=== PATIENT | male | born 1940 | race Caucasian/White ===

== ENCOUNTER 2018-05-10 08:42 | Inpatient (IN) ==
[2018-05-10] MEDS ORDERED: MethylPREDNISolone Sod Succinate Inj 125 MG/2 ML Vial IV.PUSH ONE (09:04)
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
[2018-05-10 09:17] LABS: Baso # (Auto) 0.1 th/mm3 (0.0-0.2); Baso % (Auto) 0.9 % (0.0-2.0); Eos # (Auto) 0.3 th/mm3 (0.0-0.4); Eos % (Auto) 3.2 % (0.0-4.0); Hematocrit 45.4 % (39.0-51.0); Hemoglobin 14.9 gm/dL (13.0-17.0); Lymph # (Auto) 2.1 th/mm3 (1.0-4.8); Mean Corpuscular HGB Conc 32.7 % (32.0-36.0); Mean Corpuscular Hemoglobin 29.4 pg (27.0-34.0); Mean Corpuscular Volume 89.8 fL (80.0-100.0); Mean Platelet Volume 8.5 fL (7.0-11.0); Mono # (Auto) 0.6 th/mm3 (0.0-0.9); Mono % (Auto) 6.7 % (0.0-8.0); Neut # (Auto) 5.5 th/mm3 (1.8-7.7); Neut % (Auto) 65.2 % (16.0-70.0); Platelet Count 231 th/mm3 (150-450); Red Blood Count 5.06 mil/mm3 (4.50-5.90); Red Cell Distribution Width 13.2 % (11.6-17.2); White Blood Count 8.6 th/mm3 (4.0-11.0)
[2018-05-10] MEDS ORDERED: Succinylcholine Inj 200 MG/10 ML Vial IV.PUSH ONE (09:19)
[2018-05-10] MEDS ORDERED: Etomidate Inj 40 MG/20 ML Vial IV.PUSH ONE (09:19)
[2018-05-10] MEDS ORDERED: Sod Chloride 0.9% Inj 1,000 ML IV.CONT SCH (09:30)
[2018-05-10] MEDS: Propofol 1000 mg/100 ml Inj 1,000 MG/100 ML BOTTLE IV.CONT PRN ×4 (09:35→23:28)
[2018-05-10 09:49] LABS: Calcium 8.8 mg/dL (8.5-10.1)
[2018-05-10 09:50] LABS: Albumin 3.9 g/dL (3.4-5.0); Carbon Dioxide 27.6 meq/L (21.0-32.0); Glucose,Random 117 mg/dL (74-106)
--- NOTE | 2018-05-10 09:52 | XR ---
EXAM DATE: 05/10/2018 9:49 AM EDT AGE/SEX: 77 years / Male INDICATIONS: Short of breath. Post intubation CLINICAL DATA: This is the patient's initial encounter. Patient reports that signs and symptoms have been present for 1 day and indicates a pain score of Nonresponsive. MEDICAL/SURGICAL HISTORY: Non-responsive. Abdominal aortic aneurysm repair. COMPARISON: No prior exams available for comparison. FINDINGS: ETT at the level of the clavicles. Patchy bilateral lower lung zone airspace disease. Cardiac silhoue tte is in the upper limits of normal in size. Bony thorax is intact. CONCLUSION: 1. ETT in good position. 2. Patchy bilateral lower lung zone airspace disease, presumably atelectasis. Electronically signed by: Maximilian Garcia MD 05/10/2018 9:51 AM EDT
[2018-05-10 09:53] LABS: Glomerular Filtration Rate 65 mL/min (>89)
[2018-05-10 09:55] LABS: Total Protein 8.3 g/dL (6.4-8.2)
[2018-05-10 09:56] LABS: Alkaline Phosphatase 66 U/L (45-117); Anion Gap 8 meq/L (5-15); Chloride 103 meq/L (98-107); Potassium 4.1 meq/L (3.5-5.1); Sodium 139 meq/L (136-145)
[2018-05-10 09:57] LABS: Alanine Aminotransferase 30 U/L (12-78)
[2018-05-10 10:01] LABS: Blood Urea Nitrogen 14 mg/dL (7-18)
[2018-05-10 10:02] LABS: Aspartate Aminotransferase 30 U/L (15-37)
[2018-05-10 10:18] LABS: ABG Base Excess -1.6 mmol/L (-2-2); ABG PCO2 46 mmHg (38-42); ABG PO2 485 mmHg (61-120)
[2018-05-10] MEDS ORDERED: Sodium Phosphate Inj 30 MMOL in Sodium Chlor 0.9% Inj 250 ML IV.SIG PRN (10:38)
[2018-05-10] MEDS ORDERED: Magnesium Oxide 400 MG Tablet PO PRN (10:38)
[2018-05-10] MEDS ORDERED: Magnesium Sulfate Inj 2 GM in Sodium Chlor 0.9% Inj 96 ML IV.SIG PRN (10:38)
[2018-05-10] MEDS ORDERED: Potassium Phosphate Inj 30 MMOL in Sodium Chlor 0.9% Inj 250 ML IV.SIG PRN (10:38)
[2018-05-10] MEDS ORDERED: Potassium Chloride 25 MEQ Effervescent Tablet PO PRN (10:38)
[2018-05-10] MEDS ORDERED: Bisacodyl 10 MG Supp RECTAL PRN (10:38)
[2018-05-10] MEDS ORDERED: Potassium Phosphate 500 MG Soluble Tablet PO PRN ×2 (10:38)
[2018-05-10] MEDS ORDERED: Magnesium Sulfate Inj 4 GM in Sodium Chlor 0.9% Inj 92 ML IV.SIG PRN (10:38)
[2018-05-10] MEDS ORDERED: Potassium Chlor 20 mEq Premix 20 MEQ/100 ML PIGGYBACK IV.SIG PRN ×2 (10:38)
[2018-05-10] MEDS ORDERED: Potassium Chlor 40 mEq Premix 40 MEQ/100 ML PIGGYBACK IV.SIG PRN ×2 (10:38)
[2018-05-10] MEDS: Enoxaparin Inj 40 MG/0.4 ML Syringe SQ SCH (11:58)
[2018-05-10] MEDS: Oral Hygiene Kit OROPHARYNG SCH ×2 (11:58→16:56)
[2018-05-10] MEDS: fentaNYL 10 mcg/mL Premix Drip 2,500 MCG/250 ML BAG IV.SIG PRN (12:00)
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
[2018-05-10] MEDS: Chlorhexidine 0.12% Oral Kit 15 ML UDC OROPHARYNG SCH (20:48)
[2018-05-10] MEDS: Senna/Docusate Sodium 8.6/50 MG Tablet PO SCH (20:49)
[2018-05-10] MEDS ORDERED: Famotidine 20 MG Tablet PO SCH (21:00)
[2018-05-11] MEDS: Oral Hygiene Kit OROPHARYNG SCH ×4 (02:40→16:00)
[2018-05-11] MEDS ORDERED: Lidocaine 2% Jelly 5 ML Syringe TOPICAL ONE (03:04)
[2018-05-11] MEDS ORDERED: Chlorhexidine Gluconate 2% 1 Pack (2 Cloths) TOPICAL PRN (04:00)
[2018-05-11 05:17] LABS: ABG PCO2 44 mmHg (38-42); ABG PO2 103 mmHG (61-120)
[2018-05-11] MEDS: Chlorhexidine Gluconate 2% 1 Pack (2 Cloths) TOPICAL SCH (05:47)
[2018-05-11] MEDS: Chlorhexidine 0.12% Oral Kit 15 ML UDC OROPHARYNG SCH ×2 (08:17→22:14)
[2018-05-11] MEDS: Propofol 1000 mg/100 ml Inj 1,000 MG/100 ML BOTTLE IV.CONT PRN ×2 (09:45→22:15)
--- NOTE | 2018-05-11 10:35 | P.PNCC ---
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 He inhaled the mixture accidentally and immediately had a burning sensation in his throat. He arrived in the ED approximately 30 minutes after inhaling the mixture. In the ER, he had stridor and was emergently intubated for respiratory distress. when I evaluated the patient, he was intubated and sedated. ROS and additional history is unobtainable. SUBJ 05/11/18: Patient transferred to [facility] overnight for bronchoscopy to evaluate for inhalation injury. Clinical exam reveals bilateral inspiratory and expiratory wheezing. Continue scheduled and as needed DuoNeb and Decadron for now. Chest x-ray today is pending Objective Vital Signs / I&O: Vital Signs 05/10/18 10:45 05/10/18 11:00 05/10/18 11:33 Temperature Pulse Rate 92 H 90 84 Respiratory Rate 16 16 22 Blood Pressure 140/70 142/74 H 128/77 Pulse Oximetry 99 99 96 05/10/18 11:38 05/10/18 11:47 05/10/18 11:49 Temperature 98.7 F Pulse Rate 78 70 Respiratory Rate 16 16 Blood Pressure 99/57 L 106/58 L Pulse Oximetry 94 L 94 L 05/10/18 12:00 05/10/18 12:04 05/10/18 12:19 Temperature 98.2 F 98.2 F Pulse Rate 68 66 Respiratory Rate 16 16 Blood Pressure 102/57 L 103/56 L Pulse Oximetry 95 95 05/10/18 12:34 05/10/18 12:49 05/10/18 13:04 Temperature Pulse Rate 66 62 62 Respiratory Rate 16 16 Blood Pressure 101/57 L 106/57 L 108/60 Pulse Oximetry 95 96 96 05/10/18 13:19 05/10/18 13:34 05/10/18 13:38 Temperature Pulse Rate 62 62 Respiratory Rate 15 16 16 Blood Pressure 108/60 113/62 Pulse Oximetry 96 96 96 05/10/18 13:49 05/10/18 13:58 05/10/18 14:06 Temperature 98.8 F Pulse Rate 64 64 Respiratory Rate 15 16 Blood Pressure 119/64 123/63 Pulse Oximetry 96 96 05/10/18 14:19 05/10/18 14:34 05/10/18 14:49 Temperature Pulse Rate 62 60 60 Respiratory Rate 15 16 16 Blood Pressure 114/62 112/61 116/62 Pulse Oximetry 98 97 98 05/10/18 15:04 05/10/18 15:19 05/10/18 15:34 Temperature Pulse Rate 60 60 60 Respiratory Rate 16 16 16 Blood Pressure 113/62 118/62 118/65 Pulse Oximetry 97 97 97 05/10/18 15:35 05/10/18 15:49 05/10/18 16:00 Temperature 98.2 F Pulse Rate 60 62 62 Respiratory Rate 16 15 15 Blood Pressure 120/62 132/68 Pulse Oximetry 97 97 05/10/18 16:15 05/10/18 16:19 05/10/18 16:34 Temperature Pulse Rate 78 78 Respiratory Rate 16 16 18 Blood Pressure 128/65 135/65 Pulse Oximetry 95 95 97 05/10/18 16:49 05/10/18 16:55 05/10/18 17:04 Temperature Pulse Rate 70 68 Respiratory Rate 15 16 16 Blood Pressure 120/57 L 113/54 L Pulse Oximetry 96 95 05/10/18 17:19 05/10/18 17:34 05/10/18 17:49 Temperature Pulse Rate 66 66 66 Respiratory Rate 16 16 15 Blood Pressure 97/52 L 97/47 L 106/58 L Pulse Oximetry 94 L 92 L 93 L 05/10/18 18:04 05/10/18 18:05 05/10/18 18:19 Temperature Pulse Rate 64 64 62 Respiratory Rate 16 16 16 Blood Pressure 96/53 L 101/54 L 99/52 L Pulse Oximetry 93 L 93 L 93 L 05/10/18 19:00 05/10/18 19:50 05/10/18 20:00 Temperature 98.7 F 98.7 F Pulse Rate 63 63 Respiratory Rate 15 17 15 Blood Pressure 98/54 L 98/54 L Pulse Oximetry 94 L 94 L 95 05/10/18 21:00 05/10/18 22:00 05/10/18 22:04 Temperature Pulse Rate 74 59 L 58 L Respiratory Rate 17 18 16 Blood Pressure 116/61 94/50 L 94/50 L Pulse Oximetry 94 L 93 L 94 L 05/10/18 22:19 05/10/18 22:34 05/10/18 22:49 Temperature Pulse Rate 58 L 58 L 58 L Respiratory Rate 15 15 16 Blood Pressure 92/49 L 92/52 L 92/49 L Pulse Oximetry 93 L 94 L 94 L 05/10/18 23:00 05/10/18 23:04 05/10/18 23:19 Temperature Pulse Rate 56 L 58 L 56 L Respiratory Rate 16 15 15 Blood Pressure 92/49 L 98/52 L 96/53 L Pulse Oximetry 94 L 94 L 94 L 05/10/18 23:34 05/10/18 23:49 05/11/18 00:00 Temperature 97.9 F Pulse Rate 56 L 56 L 56 L Respiratory Rate 16 16 16 Blood Pressure 99/49 L 97/52 L Pulse Oximetry 94 L 94 L 94 L 05/11/18 00:04 05/11/18 00:19 05/11/18 00:22 Temperature Pulse Rate 56 L 56 L 57 L Respiratory Rate 16 16 16 Blood Pressure 96/51 L 103/53 L Pulse Oximetry 94 L 94 L 05/11/18 00:34 05/11/18 00:49 05/11/18 01:00 Temperature Pulse Rate 58 L 58 L 58 L Respiratory Rate 15 16 16 Blood Pressure 102/53 L 103/50 L Pulse Oximetry 94 L 94 L 94 L 05/11/18 01:50 05/11/18 01:55 05/11/18 02:00 Temperature 98.4 F Pulse Rate 85 82 Respiratory Rate 20 21 21 Blood Pressure 145/78 H 146/70 H Pulse Oximetry 100 100 05/11/18 02:01 05/11/18 02:30 05/11/18 03:00 Temperature Pulse Rate 80 70 66 Respiratory Rate 16 16 16 Blood Pressure 146/70 H 121/71 111/62 Pulse Oximetry 100 92 L 94 L 05/11/18 03:30 05/11/18 04:00 05/11/18 04:13 Temperature 98.6 F Pulse Rate 61 60 57 L Respiratory Rate 16 16 16 Blood Pressure 104/58 L 109/58 L Pulse Oximetry 95 94 L 05/11/18 04:30 05/11/18 04:40 05/11/18 05:00 Temperature Pulse Rate 57 L 63 Respiratory Rate 16 16 16 Blood Pressure 113/59 L 129/69 Pulse Oximetry 96 96 95 05/11/18 05:30 05/11/18 06:00 05/11/18 06:30 Temperature Pulse Rate 60 56 L 53 L Respiratory Rate 16 16 16 Blood Pressure 130/66 138/65 139/72 Pulse Oximetry 95 93 L 95 05/11/18 08:00 05/11/18 08:40 05/11/18 08:50 Temperature Pulse Rate 52 L Respiratory Rate 16 13 Blood Pressure Pulse Oximetry 100 100 Intake & Output 05/10/18 05/11/18 05/11/18 18:59 06:59 18:59 Intake Total 1200 / 1200 100 / 100 Balance 1200 / 1200 100 / 100 Weight 109.2 kg Intake: IV 1200 / 1200 100 / 100 Diprivan 1000 mg/100 ml Inj 1, 200 / 200 100 / 100 000 mg In 100 ml @ 5 MCG/KG/MIN 3.24 mls/hr IV.CONT TITRATE PRN Rx#:[id number] NS Inj 1,000 ML @ 1000 mls/hr 1000 / 1000 IV.CONT .Q1H [facility] Rx#:[id number] Other: Weight On Admission 109.2 kg Result Diagrams: 05/10/18 09:10 05/10/18 09:10 Other Results: gen: elderly male, lying in bed, intubated, sedated. heent: normocephalic and atraumatic. the oropharynx without soot, erythema, edema. mucous membranes are moist. hypopharynx also without erythema neck: no jvd. trachea midline. chest: intubated with 8.0 ett. equal chest rise. prvc fio2 50%, peep 5. Bilateral mild inspiratory and expiratory wheezing. cv: normal rate, regular rhythm. sinus. abd: soft, nontender, nondistended. no guarding. extr: no edema. distal pulses 2+. warm. well perfused. neuro: RASS -2. awakens on sedation hold and follows commands x 4. no focal deficits. Assessment and Plan - Assessment and Plan Plan: Assessment: 77yM with chemical inhalational injury and concern for developing chemical pneumonitis. Early diagnostic bronchoscopy to evaluate for lower airway injury/edema, Continue 24h of dexamethasone 4mg iv q6h. IVF resuscitation as patient is oliguric. Keep intubated until airway edema resolves and can be completely evaluated. Active Problems: Acute hypoxic respiratory failure Chemical pneumonitis Inhalational pneumonitis/airway burn BPH Plan: Continue ICU diagnostic bronch todayto rule out lower airway injury DuoNeb every 6 hours scheduled and as needed mivf due to BPH, mayers unable to be placed. Serial bladder scans, but may need urology consult for mayers placement if unable to void cbc, bmp in AM CXR pending propofol and fentanyl for goal RASS -2. dexamethasone 4mg iv q6h x 24h. SCDs, pepcid, lovenox tube feeds with OGT while intubated. CCT 32 min
--- NOTE | 2018-05-11 10:39 | XR ---
EXAM DATE: 05/11/2018 10:34 AM EDT AGE/SEX: 77 years / Male INDICATIONS: Shortness of breath. CLINICAL DATA: This is the patient's subsequent encounter. Patient reports that signs and symptoms h ave been present for 2 days and indicates a pain score of Nonresponsive. MEDICAL/SURGICAL HISTORY: None. Abdominal aortic aneurysm repair. COMPARISON: [facility], CHEST 1V SINGLE AP, 05/10/2018. . FINDINGS: Support apparatus in good position with ET tube above the leo. Nasogastric tube across the GE junction Cardiomegaly persist with consolidative changes left base. Interval improvement with less interstitial edema. The portion of the bony skeleton visualized is unremarkable. CONCLUSION: Interval improvement with less evidence interstitial edema Persistent consolidation changes left base Electronically signed by: Joseph Rice MD 05/11/2018 10:38 AM EDT
[2018-05-11] MEDS ORDERED: Midazolam Inj 5 MG/ML 1 ML Vial IV.PUSH ONE (11:00)
[2018-05-11] MEDS ORDERED: fentaNYL Citrate Inj 250 MCG/5 ML Ampul IV.PUSH ONE (11:00)
[2018-05-11] MEDS: Enoxaparin Inj 40 MG/0.4 ML Syringe SQ SCH (11:16)
--- NOTE | 2018-05-11 12:29 | P.PCN ---
Date of procedure: 05/11/18 Pre-op diagnosis: Inhalation injury, chemical pneumonitis Post-op diagnosis: same Procedure: Procedure: Diagnostic fiberoptic Bronchoscopy Diagnosis: Inhalation injury with chemical pneumonitis Consent: Obtained from Anesthesia: Versed 5 mg IV, fentanyl 100 mcg IV, Rocuronium 50 mg IV Description of the Procedure: The patient was sedated and mechanically ventilated. The patient was placed on 100% FIO2 and a volume control mode of ventilation. The fiberoptic bronchoscopy was inserted via ETT. The trachea, right and left mainstem bronchi, and sub-segmental bronchi were evaluated. There was evidence of moderate inflammation, mucosal edema and petechial hemorrhages involving trachea, right main bronchus, bronchus intermedius, extending somewhat to right lower lobe subsegmental bronchi. Left main bronchus had mild inflammation. Left lower lobe bronchus had moderate thick yellow secretions. BAL conducted and specimen collected for further studies. Given the findings will continue steroids for another 24 hours. Empirically start on Zosyn, discontinue if cultures remain negative. Anesthesia: GETA Surgeon: Yasmany Rojas Estimated blood loss (mL): 0 Pathology: other (BAL) Condition: critical Disposition: ICU
[2018-05-11 14:01] LABS: Hematocrit 40.3 % (39.0-51.0); Hemoglobin 13.3 gm/dL (13.0-17.0); Mean Corpuscular Hemoglobin 29.7 pg (27.0-34.0); Mean Corpuscular Volume 89.9 fL (80.0-100.0); Platelet Count 225 th/mm3 (150-450); Red Blood Count 4.48 mil/mm3 (4.50-5.90); Red Cell Distribution Width 14.4 % (11.6-17.2); White Blood Count 14.4 th/mm3 (4.0-11.0)
[2018-05-11 14:24] LABS: Calcium 8.6 mg/dL (8.5-10.1); Carbon Dioxide 25.6 meq/L (21.0-32.0); Potassium 4.4 meq/L (3.5-5.1)
[2018-05-11] MEDS: Piperacil/Tazo 3.375 GM Premix 50 ML IV.SIG SCH ×2 (15:00→22:15)
[2018-05-11] MEDS: Famotidine 20 MG Tablet PO SCH ×2 (15:18→22:15)
[2018-05-11] MEDS: Senna/Docusate Sodium 8.6/50 MG Tablet PO SCH ×2 (15:18→22:15)
--- NOTE | 2018-05-11 22:55 | P.PCN ---
Date of procedure: 05/11/18 Pre-op diagnosis: 8/acute respiratory failure Post-op diagnosis: same Procedure: DATE: 05/11/2018 PROCEDURE: Orotracheal intubation INDICATION: Acute respiratory failure DETAILS OF PROCEDURE The patient was placed in optimal position and preoxygenated with 100% FiO2 via bag valve mask. At the start oxygen saturation was 98%. The patient was administered 20 mg etomidate IV and 50 milligrams rocuronium IV. I entered the oropharynx with a size 4 laryngoscope blade and obtained a grade 2 view of the airway. On single attempt a size 8.0 cuffed endotracheal tube was passed through the vocal cords. Correct tube location was confirmed with end tidal CO2 detector and by auscultating over bilateral lung wen. The endotracheal tube was secured with adhesive tape at a depth of24 cm at the lips. The patient was connected to the ventilator. The patient tolerated the procedure well without any apparent complications. Oxygen saturations were maintained greater than 95% all times. STAT chest x-ray pending at time of dictation.
[2018-05-12] MEDS: Oral Hygiene Kit OROPHARYNG SCH ×4 (01:36→19:48)
[2018-05-12] MEDS: Piperacil/Tazo 3.375 GM Premix 50 ML IV.SIG SCH ×4 (01:36→20:16)
[2018-05-12 05:35] LABS: ABG Base Excess 0.2 mmol/L (-2-2); ABG PCO2 41 mmHg (38-42); ABG PO2 82 mmHG (61-120)
[2018-05-12 06:00] LABS: Hematocrit 39.3 % (39.0-51.0); Mean Corpuscular Hemoglobin 29.9 pg (27.0-34.0); Mean Corpuscular Volume 90.7 fL (80.0-100.0); Mean Platelet Volume 8.6 fL (7.0-11.0); Platelet Count 216 th/mm3 (150-450); Red Blood Count 4.34 mil/mm3 (4.50-5.90); Red Cell Distribution Width 14.3 % (11.6-17.2); White Blood Count 12.5 th/mm3 (4.0-11.0)
[2018-05-12] MEDS: Propofol 1000 mg/100 ml Inj 1,000 MG/100 ML BOTTLE IV.CONT PRN (06:11)
[2018-05-12] MEDS: Chlorhexidine Gluconate 2% 1 Pack (2 Cloths) TOPICAL SCH (06:11)
[2018-05-12] MEDS: fentaNYL 10 mcg/mL Premix Drip 2,500 MCG/250 ML BAG IV.SIG PRN (06:12)
[2018-05-12 06:30] LABS: Calcium 8.8 mg/dL (8.5-10.1); Carbon Dioxide 24.8 meq/L (21.0-32.0); Potassium 4.5 meq/L (3.5-5.1)
[2018-05-12] MEDS: Chlorhexidine 0.12% Oral Kit 15 ML UDC OROPHARYNG SCH ×2 (09:17→20:16)
[2018-05-12] MEDS: Famotidine 20 MG Tablet PO SCH ×2 (09:17→20:16)
[2018-05-12] MEDS: Senna/Docusate Sodium 8.6/50 MG Tablet PO SCH ×2 (09:17→20:16)
--- NOTE | 2018-05-12 10:24 | P.PNCC ---
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 He inhaled the mixture accidentally and immediately had a burning sensation in his throat. He arrived in the ED approximately 30 minutes after inhaling the mixture. In the ER, he had stridor and was emergently intubated for respiratory distress. when I evaluated the patient, he was intubated and sedated. ROS and additional history is unobtainable. SUBJ 05/11/18: Patient transferred to [facility] overnight for bronchoscopy to evaluate for inhalation injury. Clinical exam reveals bilateral inspiratory and expiratory wheezing. Continue scheduled and as needed DuoNeb and Decadron for now. Chest x-ray today is pending SUBJ 05/12/18: Patient remains on the vent breathing comfortably awake alert follows commands. Bronchoscopy yesterday showed evidence of chemical injury and mild airway edema in the upper airway and also right main bronchus. Objective Vital Signs / I&O: Vital Signs 05/11/18 11:00 05/11/18 11:41 05/11/18 12:00 Temperature Pulse Rate 79 95 H Respiratory Rate 16 17 Blood Pressure 142/65 H 165/79 H Pulse Oximetry 100 100 94 L 05/11/18 12:04 05/11/18 13:00 05/11/18 14:00 Temperature Pulse Rate 75 65 Respiratory Rate 16 16 16 Blood Pressure 168/79 H 121/63 Pulse Oximetry 94 L 96 97 05/11/18 15:00 05/11/18 16:00 05/11/18 16:52 Temperature Pulse Rate 57 L 57 L 52 L Respiratory Rate 16 16 16 Blood Pressure 116/63 123/65 Pulse Oximetry 95 99 94 L 05/11/18 17:00 05/11/18 18:00 05/11/18 19:37 Temperature Pulse Rate 54 L 52 L 52 L Respiratory Rate 16 16 16 Blood Pressure 118/64 122/67 Pulse Oximetry 94 L 95 05/11/18 20:00 05/11/18 22:00 05/11/18 23:25 Temperature 97.8 F Pulse Rate 55 L 53 L Respiratory Rate 16 16 Blood Pressure 121/65 Pulse Oximetry 96 96 05/12/18 00:00 05/12/18 02:00 05/12/18 03:36 Temperature 99.7 F H Pulse Rate 50 L 47 L 43 L Respiratory Rate 16 16 Blood Pressure 115/61 Pulse Oximetry 94 L 96 05/12/18 04:00 05/12/18 06:00 05/12/18 07:40 Temperature Pulse Rate 48 L 45 L Respiratory Rate 16 28 H Blood Pressure 126/62 Pulse Oximetry 95 05/12/18 08:00 05/12/18 08:08 Temperature Pulse Rate 45 L Respiratory Rate 16 16 Blood Pressure Pulse Oximetry 97 Intake & Output 05/11/18 05/12/18 05/12/18 18:59 06:59 18:59 Intake Total 150 / 150 450 / 450 Balance 150 / 150 450 / 450 Intake: IV 150 / 150 450 / 450 Diprivan 1000 mg/100 ml Inj 1, 100 / 100 100 / 100 000 mg In 100 ml @ 5 MCG/KG/MIN 3.24 mls/hr IV.CONT TITRATE PRN Rx#:[id number] Zosyn 3.375 GM Premix 50 ML @ 50 / 50 100 / 100 100 mls/hr IV.SIG Q6H [facility] Rx#: [id number] fentaNYL 10 mcg/mL Premix Drip 250 / 250 2,500 mcg In 250 ml @ 50 MCG/HR 5 mls/hr IV.SIG TITRATE PRN Rx #:[id number] Result Diagrams: 05/12/18 04:37 05/12/18 04:37 Objective Remarks: gen: elderly male, lying in bed, intubated, sedated. heent: normocephalic and atraumatic. the oropharynx without soot, erythema, edema. mucous membranes are moist. hypopharynx also without erythema neck: no jvd. trachea midline. chest: intubated with 8.0 ett. equal chest rise. prvc fio2 50%, peep 5. Wheezing has cleared cv: normal rate, regular rhythm. sinus. abd: soft, nontender, nondistended. no guarding. extr: no edema. distal pulses 2+. warm. well perfused. neuro: RASS -2. awakens on sedation hold and follows commands x 4. no focal deficits. Assessment and Plan - Assessment and Plan Plan: Assessment: 77yM with chemical inhalational injury and and chemical pneumonitis. Early diagnostic bronchoscopy to evaluate for lower airway injury/ edema, performed yesterday showed. Evidence of inhalation injury to upper airways and right main bronchus. Continue dexamethasone 4mg iv q6h. IVF resuscitation as patient is oliguric. SBT today Active Problems: Acute hypoxic respiratory failure Chemical pneumonitis Inhalational pneumonitis/airway burn BPH Plan: Continue ICU. Diagnostic bronchoscopy performed yesterday showed evidence of inhalation injury to upper airways and right main bronchus, with mild edema. DuoNeb every 6 hours scheduled and as needed mivf due to BPH, mayers unable to be placed. Serial bladder scans, but may need urology consult for mayers placement if unable to void cbc, bmp in AM. CXR zs needed propofol and fentanyl for goal RASS -2. dexamethasone 4mg iv q6h x stop today. SCDs, pepcid, lovenox tube feeds with OGT while intubated. Level 3 SBT with possible extubation today Code Status: Full
[2018-05-12] MEDS: Enoxaparin Inj 40 MG/0.4 ML Syringe SQ SCH (14:07)
[2018-05-13] MEDS: Piperacil/Tazo 3.375 GM Premix 50 ML IV.SIG SCH ×4 (01:13→20:28)
[2018-05-13] MEDS: Oral Hygiene Kit OROPHARYNG SCH ×4 (01:13→15:35)
[2018-05-13 05:08] LABS: Mean Corpuscular HGB Conc 33.4 % (32.0-36.0); Mean Corpuscular Volume 89.9 fL (80.0-100.0); Mean Platelet Volume 8.5 fL (7.0-11.0); Platelet Count 216 th/mm3 (150-450); Red Blood Count 4.34 mil/mm3 (4.50-5.90); Red Cell Distribution Width 14.4 % (11.6-17.2); White Blood Count 12.3 th/mm3 (4.0-11.0)
[2018-05-13] MEDS: Chlorhexidine Gluconate 2% 1 Pack (2 Cloths) TOPICAL SCH (05:09)
[2018-05-13] MEDS: Thyroid 60 MG Tablet PO SCH (05:09)
[2018-05-13 05:19] LABS: ABG Base Excess 1.8 mmol/L (-2-2); ABG PCO2 36 mmHg (38-42); ABG PO2 65 mmHG (61-120)
[2018-05-13 05:46] LABS: Calcium 8.6 mg/dL (8.5-10.1); Carbon Dioxide 27.2 meq/L (21.0-32.0); Potassium 4.3 meq/L (3.5-5.1)
[2018-05-13] MEDS: Senna/Docusate Sodium 8.6/50 MG Tablet PO SCH ×2 (08:23→20:29)
[2018-05-13] MEDS: Famotidine 20 MG Tablet PO SCH ×2 (08:23→20:29)
[2018-05-13] MEDS: Pantoprazole Sodium 20 MG DR Tablet PO SCH (08:24)
[2018-05-13] MEDS: Chlorhexidine 0.12% Oral Kit 15 ML UDC OROPHARYNG SCH ×2 (08:24→20:28)
[2018-05-13] MEDS: Lisinopril 20 MG Tablet PO SCH (08:25)
--- NOTE | 2018-05-13 10:31 | P.PNIM ---
Subjective Interval history: Patient reports he is feeling much better overall. Breathing more comfortably. He does get lightheaded with sitting and standing up too fast. Physical Exam Vital signs: Vital Signs 05/12/18 11:00 05/12/18 11:55 05/12/18 12:00 Temperature Pulse Rate 86 100 H Respiratory Rate 15 14 25 H Blood Pressure 148/79 H Pulse Oximetry 93 L 97 100 05/12/18 12:10 05/12/18 13:00 05/12/18 14:00 Temperature Pulse Rate 72 88 Respiratory Rate 14 25 H Blood Pressure 146/70 H 156/72 H Pulse Oximetry 94 L 75 L 100 05/12/18 14:50 05/12/18 15:01 05/12/18 16:00 Temperature Pulse Rate 52 L 81 73 Respiratory Rate 12 25 H 18 Blood Pressure 143/65 H 140/66 Pulse Oximetry 91 L 91 L 05/12/18 17:00 05/12/18 17:30 05/12/18 18:00 Temperature 98.7 F Pulse Rate 73 69 71 Respiratory Rate 19 18 19 Blood Pressure 152/67 H 145/69 H 145/69 H Pulse Oximetry 96 95 95 05/12/18 18:30 05/12/18 19:00 05/12/18 19:31 Temperature Pulse Rate 66 65 93 H Respiratory Rate 18 15 34 H Blood Pressure 152/72 H 146/71 H 174/60 H Pulse Oximetry 95 96 90 L 05/12/18 20:00 05/12/18 20:01 05/12/18 20:26 Temperature 99.9 F H Pulse Rate 108 H 86 75 Respiratory Rate 44 H 29 H 16 Blood Pressure 134/66 134/66 Pulse Oximetry 86 L 91 L 92 L 05/12/18 21:00 05/12/18 22:00 05/12/18 23:00 Temperature Pulse Rate 77 74 65 Respiratory Rate 20 29 H 19 Blood Pressure 141/69 H 163/73 H 145/70 H Pulse Oximetry 86 L 91 L 96 05/12/18 23:01 05/13/18 00:00 05/13/18 00:01 Temperature 99.5 F Pulse Rate 61 59 L 58 L Respiratory Rate 17 19 19 Blood Pressure 145/70 H 162/77 H 162/77 H Pulse Oximetry 97 95 95 05/13/18 01:00 05/13/18 02:00 05/13/18 02:01 Temperature Pulse Rate 57 L 57 L 59 L Respiratory Rate 17 20 19 Blood Pressure 163/77 H 118/95 H 169/84 H Pulse Oximetry 97 95 95 05/13/18 03:00 05/13/18 03:01 05/13/18 03:57 Temperature Pulse Rate 78 71 56 L Respiratory Rate 27 H 27 H 16 Blood Pressure 113/96 H 163/79 H Pulse Oximetry 96 95 05/13/18 04:00 05/13/18 04:01 05/13/18 04:07 Temperature 99.2 F Pulse Rate 63 67 71 Respiratory Rate 19 23 20 Blood Pressure 163/79 H 234/102 H 132/65 Pulse Oximetry 98 96 98 05/13/18 05:00 05/13/18 06:00 05/13/18 07:00 Temperature Pulse Rate 68 75 59 L Respiratory Rate 18 24 20 Blood Pressure 138/73 123/80 Pulse Oximetry 94 L 94 L 96 05/13/18 07:01 05/13/18 08:00 05/13/18 08:01 Temperature 98.6 F Pulse Rate 58 L 60 60 Respiratory Rate 19 19 18 Blood Pressure 155/74 H 156/76 H 156/76 H Pulse Oximetry 95 95 96 05/13/18 09:00 05/13/18 09:49 05/13/18 09:50 Temperature Pulse Rate 69 64 Respiratory Rate 21 26 H Blood Pressure 175/81 H Pulse Oximetry 95 96 05/13/18 10:00 05/13/18 10:01 Temperature Pulse Rate 61 65 Respiratory Rate 15 23 Blood Pressure 135/67 Pulse Oximetry 96 95 Intake & Output 05/12/18 05/13/18 05/13/18 18:59 06:59 18:59 Intake Total 100 / 100 100 / 100 50 / 50 Balance 100 / 100 100 / 100 50 / 50 Intake: IV 100 / 100 100 / 100 50 / 50 Zosyn 3.375 GM Premix 50 ML @ 100 / 100 100 / 100 50 / 50 100 mls/hr IV.SIG Q6H [facility] Rx#: [id number] Other: Date of Last Bowel Movement 05/13/18 Narrative: GENERAL: Obese male in no apparent distress. CARDIOVASCULAR: Normal rate and regular rhythm without murmurs, gallops, or rubs. RESPIRATORY: Good respiratory efforts. Diminished breath sounds at the bases. Otherwise clear to auscultation bilaterally. No wheezing or stridor. GASTROINTESTINAL: Abdomen soft, non-tender, non-distended. Normal active bowel sounds MUSCULOSKELETAL: Extremities without cyanosis, or edema. NEURO: Alert & Oriented x4 to person, place, time, situation. Moves all ext x4 PSYCH: Appropriate mood and affect. - Urinary Catheter Management Condom Cath placed during this visit: yes Reason for continuing: Not indwelling catheter Insertion date: 05/12/18 Insertion time: 10:00 Results - Labs CBC & Chem 7: 05/13/18 04:15 05/13/18 04:15 Laboratory Results - last 24 hr 05/13/18 05/13/18 05/13/18 04:15 04:15 05:04 WBC 12.3 H RBC 4.34 L Hgb 13.0 Hct 39.0 MCV 89.9 MCH 30.0 MCHC 33.4 RDW 14.4 Plt Count 216 MPV 8.5 Puncture Site Right radial Patient Temperature 98.6 O2 Saturation 90 ABG pH 7.47 H ABG pCO2 36 L ABG pO2 65 ABG HCO3 25 ABG O2 Content 16.7 ABG Base Excess 1.8 ABG Methemoglobin 1.6 Dillon Test Present Hemoglobin 13.2 Carboxyhemoglobin 0.9 O2 Delivery Device Nasal cannula Liter Flow 6.00 Inspired O2 21 Critical Value No Sodium 140 Potassium 4.3 Chloride 102 Carbon Dioxide 27.2 Anion Gap 11 BUN 35 H Creatinine 1.00 Estimated GFR 73 L Random Glucose 139 H Calcium 8.6 Microbiology 05/11/18 11:25 Bronchial - Left Lower Lobe Gram Stain - Final 05/11/18 11:25 Bronchial - Left Lower Lobe Bronchial Culture - Preliminary Immature growth - reincubate 05/11/18 11:25 Bronchial Washings - Left Lower Lobe Fungal Smear - Final No fungal elements seen 05/11/18 11:25 Bronchial Washings - Left Lower Lobe Acid Fast Bacilli Smear - Final No acid fast bacilli seen Assessment and Plan - Plan 77-year-old male admitted with acute hypoxemic respiratory failure secondary to chemical inhalation pneumonitis. Acute hypoxemic respiratory failure/chemical inhalation pneumonitis/airway burn : From accidentally mixing chlorine and acid at work. - Status post intubation and extubation. Bronchoscopy performed showed an inhalation injury to upper airways and right main bronchus. Mild edema - Continue supplemental oxygen, duo nebs every 6 hours. Physical deconditioning: Secondary to above. - Physical therapy working with patient Hypothyroidism: Continue replacement with Synthroid. Hypertension: - Continue antihypertensives. GI prophylaxis: PPI. Stool softener PRN constipation. DVT PPx: Lovenox Discharge Planning: Hemodynamically stable for transfer to floor. Anticipate discharge to SNF versus home with home health in the next 2 days.
[2018-05-13] MEDS: Enoxaparin Inj 40 MG/0.4 ML Syringe SQ SCH (10:47)
[2018-05-14] MEDS: Piperacil/Tazo 3.375 GM Premix 50 ML IV.SIG SCH ×3 (02:10→14:32)
[2018-05-14] MEDS: Oral Hygiene Kit OROPHARYNG SCH ×4 (02:10→15:32)
[2018-05-14 05:35] LABS: Hematocrit 41.4 % (39.0-51.0); Hemoglobin 13.7 gm/dL (13.0-17.0); Mean Corpuscular Volume 90.9 fL (80.0-100.0); Mean Platelet Volume 8.3 fL (7.0-11.0); Platelet Count 183 th/mm3 (150-450); Red Blood Count 4.55 mil/mm3 (4.50-5.90); Red Cell Distribution Width 14.1 % (11.6-17.2)
[2018-05-14] MEDS: Pantoprazole Sodium 20 MG DR Tablet PO SCH (06:01)
[2018-05-14] MEDS: Chlorhexidine Gluconate 2% 1 Pack (2 Cloths) TOPICAL SCH (06:01)
[2018-05-14] MEDS: Thyroid 60 MG Tablet PO SCH (06:01)
[2018-05-14 06:04] LABS: Calcium 8.7 mg/dL (8.5-10.1); Potassium 3.8 meq/L (3.5-5.1)
[2018-05-14] MEDS: Lisinopril 20 MG Tablet PO SCH (08:39)
[2018-05-14] MEDS: Famotidine 20 MG Tablet PO SCH (08:40)
[2018-05-14] MEDS: Senna/Docusate Sodium 8.6/50 MG Tablet PO SCH (08:40)
[2018-05-14] MEDS: Chlorhexidine 0.12% Oral Kit 15 ML UDC OROPHARYNG SCH (08:40)
[2018-05-14] MEDS ORDERED: amLODIPine 5 MG Tablet PO SCH (09:30)
--- NOTE | 2018-05-14 09:35 | P.PNIM ---
Subjective Interval history: Patient reports he is feeling better overall. Still has a sore throat. Blood pressure not well controlled. Still requiring 4.5 L of oxygen. Physical Exam Vital signs: Vital Signs 05/13/18 09:49 05/13/18 09:50 05/13/18 10:00 Temperature Pulse Rate 64 61 Respiratory Rate 26 H 15 Blood Pressure Pulse Oximetry 96 96 05/13/18 10:01 05/13/18 10:59 05/13/18 11:00 Temperature Pulse Rate 65 82 83 Respiratory Rate 23 22 26 H Blood Pressure 135/67 148/70 H Pulse Oximetry 95 94 L 93 L 05/13/18 12:00 05/13/18 12:01 05/13/18 13:00 Temperature 98.3 F Pulse Rate 67 71 64 Respiratory Rate 20 20 22 Blood Pressure 171/73 H 171/73 H Pulse Oximetry 92 L 94 L 94 L 05/13/18 13:01 05/13/18 14:00 05/13/18 14:01 Temperature Pulse Rate 68 73 68 Respiratory Rate 25 H 26 H 22 Blood Pressure 160/70 H 148/63 H Pulse Oximetry 90 L 91 L 93 L 05/13/18 15:00 05/13/18 16:00 05/13/18 17:00 Temperature 98.6 F Pulse Rate 65 58 L 54 L Respiratory Rate 23 21 20 Blood Pressure 152/72 H 174/83 H Pulse Oximetry 93 L 94 L 94 L 05/13/18 17:01 05/13/18 17:08 05/13/18 18:00 Temperature Pulse Rate 57 L 69 61 Respiratory Rate 20 16 20 Blood Pressure 154/75 H Pulse Oximetry 96 89 L 05/13/18 18:01 05/13/18 19:00 05/13/18 19:01 Temperature Pulse Rate 64 69 76 Respiratory Rate 23 20 27 H Blood Pressure 126/61 163/76 H Pulse Oximetry 95 95 94 L 05/13/18 20:00 05/13/18 20:01 05/13/18 21:00 Temperature Pulse Rate 66 63 55 L Respiratory Rate 22 21 21 Blood Pressure 174/77 H Pulse Oximetry 96 95 92 L 05/13/18 21:01 05/13/18 22:00 05/13/18 22:01 Temperature Pulse Rate 57 L 57 L 56 L Respiratory Rate 20 18 18 Blood Pressure 125/61 155/74 H Pulse Oximetry 94 L 95 96 05/13/18 23:00 05/13/18 23:01 05/14/18 00:00 Temperature 98.5 F Pulse Rate 54 L 55 L 55 L Respiratory Rate 19 19 21 Blood Pressure 163/79 H 132/66 Pulse Oximetry 97 98 95 05/14/18 00:01 05/14/18 01:00 05/14/18 01:01 Temperature Pulse Rate 55 L 53 L 53 L Respiratory Rate 21 19 18 Blood Pressure 132/66 155/71 H Pulse Oximetry 96 96 96 05/14/18 02:00 05/14/18 03:00 05/14/18 03:01 Temperature Pulse Rate 55 L 53 L 59 L Respiratory Rate 20 21 32 H Blood Pressure 173/85 H 149/75 H Pulse Oximetry 94 L 98 99 05/14/18 04:00 05/14/18 04:01 05/14/18 04:10 Temperature 98.2 F Pulse Rate 57 L 95 H 64 Respiratory Rate 22 36 H 19 Blood Pressure 183/88 H 183/88 H Pulse Oximetry 97 87 L 05/14/18 05:00 05/14/18 05:01 05/14/18 06:00 Temperature Pulse Rate 65 59 L 65 Respiratory Rate 23 21 22 Blood Pressure 193/84 H Pulse Oximetry 91 L 92 L 95 05/14/18 06:01 05/14/18 06:05 05/14/18 06:19 Temperature Pulse Rate 71 80 82 Respiratory Rate 29 H 33 H 34 H Blood Pressure 205/93 H 184/103 H 161/84 H Pulse Oximetry 95 88 L 91 L 05/14/18 07:00 05/14/18 08:00 05/14/18 08:16 Temperature 98.3 F Pulse Rate 56 L 59 L 64 Respiratory Rate 20 21 19 Blood Pressure 175/84 H 184/83 H 168/82 H Pulse Oximetry 95 96 97 05/14/18 09:00 Temperature Pulse Rate 70 Respiratory Rate 24 Blood Pressure Pulse Oximetry 98 Intake & Output 05/13/18 05/14/18 05/14/18 18:59 06:59 18:59 Intake Total 820 / 820 300 / 300 Output Total 1375 / 1375 850 / 850 Balance -555 / -555 -550 / -550 Weight 102.5 kg Intake: IV 100 / 100 100 / 100 Zosyn 3.375 GM Premix 50 ML @ 100 / 100 100 / 100 100 mls/hr IV.SIG Q6H AMALIA Rx#: [id number] Oral 720 / 720 200 / 200 Output: Urine Amount (Catheter) 1375 / 1375 850 / 850 Condom 1375 / 1375 850 / 850 Other: Date of Last Bowel Movement 05/13/18 05/13/18 05/13/18 # Bowel Movements 0 Narrative: GENERAL: Obese male in no apparent distress. CARDIOVASCULAR: Normal rate and regular rhythm without murmurs, gallops, or rubs. RESPIRATORY: Good respiratory efforts. Diminished breath sounds at the bases. Otherwise clear to auscultation bilaterally. No wheezing or stridor. GASTROINTESTINAL: Abdomen soft, non-tender, non-distended. Normal active bowel sounds MUSCULOSKELETAL: Extremities without cyanosis, or edema. NEURO: Alert & Oriented x4 to person, place, time, situation. Moves all ext x4 PSYCH: Appropriate mood and affect. - Urinary Catheter Management Condom Cath placed during this visit: yes Reason for continuing: Not indwelling catheter Insertion date: 05/12/18 Insertion time: 10:00 Results - Labs CBC & Chem 7: 05/14/18 04:38 05/14/18 04:38 Laboratory Results - last 24 hr 05/14/18 05/14/18 04:38 04:38 WBC 10.0 RBC 4.55 Hgb 13.7 Hct 41.4 MCV 90.9 MCH 30.0 MCHC 33.0 RDW 14.1 Plt Count 183 MPV 8.3 Sodium 139 Potassium 3.8 Chloride 102 Carbon Dioxide 28.0 Anion Gap 9 BUN 23 H Creatinine 1.07 Estimated GFR 67 L Random Glucose 98 Calcium 8.7 Microbiology 05/11/18 11:25 Bronchial - Left Lower Lobe Gram Stain - Final 05/11/18 11:25 Bronchial - Left Lower Lobe Bronchial Culture - Final Heavy growth normal respiratory cabrera Assessment and Plan - Plan 77-year-old male admitted with acute hypoxemic respiratory failure secondary to chemical inhalation pneumonitis. Acute hypoxemic respiratory failure/chemical inhalation pneumonitis/airway burn : From accidentally mixing chlorine and acid at work. - Status post intubation and extubation. Bronchoscopy performed showed an inhalation injury to upper airways and right main bronchus. Mild edema - Continue supplemental oxygen, duo nebs every 6 hours. -Add Acapela. -Wean down oxygen as tolerated. Physical deconditioning: Secondary to above. - Physical therapy working with patient -OT to evaluate. May be a candidate for [facility] given ongoing medical issues. Hypothyroidism: Continue replacement with Synthroid. Hypertension: Uncontrolled. - Continue lisinopril. Add amlodipine. Continue to monitor and titrate antihypertensives. GI prophylaxis: PPI. Stool softener PRN constipation. DVT PPx: Lovenox Discharge Planning: Hemodynamically stable for transfer to floor. [facility] to evaluate.
[2018-05-14] MEDS: Enoxaparin Inj 40 MG/0.4 ML Syringe SQ SCH (10:21)
[2018-05-14 12:16] VITALS: O2SAT 92
--- NOTE | 2018-05-14 15:36 | P.DS ---
Date of admission: 05/10/18 10:39 Primary care physician: No Primary Care Physician Brief History from admission: HPI from the admitting physician This is a 77yM who works with [employer] who accidentally poured liquid chlorine into a 55 gallon drum of sulfuric acid. He inhaled the mixture accidentally and immediately had a burning sensation in his throat. He arrived in the ED approximately 30 minutes after inhaling the mixture. In the ER, he had stridor and was emergently intubated for respiratory distress. when I evaluated the patient, he was intubated and sedated. ROS and additional history is unobtainable. DS: Diagnosis - Discharge Diagnosis (1) Accelerated hypertension Status: Acute (2) Inhalation injury Status: Acute DS: Summary Hospital Course: 77-year-old male admitted with acute hypoxemic respiratory failure secondary to chemical inhalation pneumonitis. Evaluation and treatment course detailed below : Acute hypoxemic respiratory failure/chemical inhalation pneumonitis/airway burn : From accidentally mixing chlorine and acid at work. - Status post intubation and extubation. Bronchoscopy performed showed an inhalation injury to upper airways and right main bronchus. Mild edema - Continue supplemental oxygen, duo nebs every 6 hours. - Acapela. -Wean down oxygen as tolerated. To be continued in rehab. Accelerated hypertension: - Continue lisinopril. Amlodipine was added. Continue to monitor and titrate antihypertensives. Physical deconditioning: Secondary to above. - Physical therapy working with patient -Continue rehabilitation efforts [facility]. Hypothyroidism: Continue replacement with Synthroid. - Time Spent with Patient Total time spent providing and/or coordinating discharge services: Greater than 30 minutes Exam Vital signs: Vital Signs 05/13/18 16:00 05/13/18 17:00 05/13/18 17:01 Temperature 98.6 F Pulse Rate 58 L 54 L 57 L Respiratory Rate 21 20 20 Blood Pressure 174/83 H 154/75 H Pulse Oximetry 94 L 94 L 96 05/13/18 17:08 05/13/18 18:00 05/13/18 18:01 Temperature Pulse Rate 69 61 64 Respiratory Rate 16 20 23 Blood Pressure 126/61 Pulse Oximetry 89 L 95 05/13/18 19:00 05/13/18 19:01 05/13/18 20:00 Temperature Pulse Rate 69 76 66 Respiratory Rate 20 27 H 22 Blood Pressure 163/76 H Pulse Oximetry 95 94 L 96 05/13/18 20:01 05/13/18 21:00 05/13/18 21:01 Temperature Pulse Rate 63 55 L 57 L Respiratory Rate 21 21 20 Blood Pressure 174/77 H 125/61 Pulse Oximetry 95 92 L 94 L 05/13/18 22:00 05/13/18 22:01 05/13/18 23:00 Temperature Pulse Rate 57 L 56 L 54 L Respiratory Rate 18 18 19 Blood Pressure 155/74 H Pulse Oximetry 95 96 97 05/13/18 23:01 05/14/18 00:00 05/14/18 00:01 Temperature 98.5 F Pulse Rate 55 L 55 L 55 L Respiratory Rate 19 21 21 Blood Pressure 163/79 H 132/66 132/66 Pulse Oximetry 98 95 96 05/14/18 01:00 05/14/18 01:01 05/14/18 02:00 Temperature Pulse Rate 53 L 53 L 55 L Respiratory Rate 19 18 20 Blood Pressure 155/71 H 173/85 H Pulse Oximetry 96 96 94 L 05/14/18 03:00 05/14/18 03:01 05/14/18 04:00 Temperature 98.2 F Pulse Rate 53 L 59 L 57 L Respiratory Rate 21 32 H 22 Blood Pressure 149/75 H 183/88 H Pulse Oximetry 98 99 97 05/14/18 04:01 05/14/18 04:10 05/14/18 05:00 Temperature Pulse Rate 95 H 64 65 Respiratory Rate 36 H 19 23 Blood Pressure 183/88 H Pulse Oximetry 87 L 91 L 05/14/18 05:01 05/14/18 06:00 05/14/18 06:01 Temperature Pulse Rate 59 L 65 71 Respiratory Rate 21 22 29 H Blood Pressure 193/84 H 205/93 H Pulse Oximetry 92 L 95 95 05/14/18 06:05 05/14/18 06:19 05/14/18 07:00 Temperature Pulse Rate 80 82 56 L Respiratory Rate 33 H 34 H 20 Blood Pressure 184/103 H 161/84 H 175/84 H Pulse Oximetry 88 L 91 L 95 05/14/18 08:00 05/14/18 08:16 05/14/18 09:00 Temperature 98.3 F Pulse Rate 59 L 64 70 Respiratory Rate 21 19 24 Blood Pressure 184/83 H 168/82 H Pulse Oximetry 96 97 98 05/14/18 09:12 05/14/18 09:21 05/14/18 09:36 Temperature Pulse Rate 70 80 80 Respiratory Rate 31 H 28 H 20 Blood Pressure 192/95 H 168/79 H Pulse Oximetry 96 92 L 05/14/18 10:00 05/14/18 10:01 05/14/18 11:00 Temperature Pulse Rate 77 75 69 Respiratory Rate 29 H 22 19 Blood Pressure 167/77 H Pulse Oximetry 94 L 96 94 L 05/14/18 11:01 05/14/18 12:00 Temperature 99.1 F Pulse Rate 70 72 Respiratory Rate 26 H 23 Blood Pressure 165/80 H 179/86 H Pulse Oximetry 92 L 92 L Intake & Output 05/13/18 05/14/18 05/14/18 18:59 06:59 18:59 Intake Total 820 / 820 300 / 300 50 / 50 Output Total 1375 / 1375 850 / 850 Balance -555 / -555 -550 / -550 50 / 50 Weight 102.5 kg Intake: IV 100 / 100 100 / 100 50 / 50 Zosyn 3.375 GM Premix 50 ML @ 100 / 100 100 / 100 50 / 50 100 mls/hr IV.SIG Q6H [facility]ALIA Rx#: [id number] Oral 720 / 720 200 / 200 Output: Urine Amount (Catheter) 1375 / 1375 850 / 850 Condom 1375 / 1375 850 / 850 Other: Date of Last Bowel Movement 05/13/18 05/13/18 05/14/18 # Bowel Movements 0 Narrative: GENERAL: Obese male in no apparent distress. CARDIOVASCULAR: Normal rate and regular rhythm without murmurs, gallops, or rubs. RESPIRATORY: Good respiratory efforts. Diminished breath sounds at the bases. Otherwise clear to auscultation bilaterally. No wheezing or stridor. GASTROINTESTINAL: Abdomen soft, non-tender, non-distended. Normal active bowel sounds MUSCULOSKELETAL: Extremities without cyanosis, or edema. NEURO: Alert & Oriented x4 to person, place, time, situation. Moves all ext x4 PSYCH: Appropriate mood and affect. Results Procedures completed during hospitalization: Intubation and extubation Labs on day of discharge: Labs from last 24 hours 05/14/18 05/14/18 04:38 04:38 WBC 10.0 RBC 4.55 Hgb 13.7 Hct 41.4 MCV 90.9 MCH 30.0 MCHC 33.0 RDW 14.1 Plt Count 183 MPV 8.3 Sodium 139 Potassium 3.8 Chloride 102 Carbon Dioxide 28.0 Anion Gap 9 BUN 23 H Creatinine 1.07 Estimated GFR 67 L Random Glucose 98 Calcium 8.7 - Impressions ITS Impressions Chest X-Ray 05/11/18 05:00 CONCLUSION: Interval improvement with less evidence interstitial edema Persistent consolidation changes left base Discharge Plan - Discharge Disposition Patient Disposition: [facility] Rehab Inpatient - Discharge Condition Condition: Good - Discharge Order Discharge Orders: Discharge Order (Routine); Ordered 05/14/18 Ordered By: Eliseo Awan - Physicians Team Primary Care Provider: Primary Care Physici,No Attending Provider: Eliseo Awan
[2018-05-14 16:08] VITALS: BP 171/90; TEMP 97.7
[2018-05-14 16:44] VITALS: PULSE 82; RESP 20
== END 2018-05-14 16:50 ==
LOC: PHED 08:42 → PHEDA 10:39 → PHICU 11:35 → HIMC 05-11 01:45
PROVIDERS: ADMIT Family Medicine; ATTEND Family Medicine